=== PATIENT | male | born 1980 | race Caucasian/White ===

== ENCOUNTER 2019-05-29 08:53 | Inpatient (IN) | payer BC ==
[~2019-05-29] VITALS: Ht 167.6 cm; Wt 105.4 kg
[2019-05-29 08:54] VITALS: Ht 167.6 cm; Wt 105.4 kg
--- NOTE | 2019-05-29 08:54 | NUR ---
PT BIB [facility] WITH C/O SOB X4 DAYS WORSENING SINCE THIS AM, PER MEDICS PT WAS HYPOTENSIVE AND TACYCARDIA ON SCENE, PER MEDICS PT HAS HX COLON CANCER THAT METS "TO UNKNOWN LOCATION" UPON ARRIVAL PT AAOX4, LABORED BREATHING NOTED, PT ON 6L O2 NC, PORT A CATH NOTED TO RIGHT UPPER CHEST WITH ECCYMOSIS SURROUNDING PORT A CATH LOCATION, PER PT "FROM THE CATH" PT ABLE TO SPEAK 3-4 WORDS AT TIME, BILATERAL PEDAL EDEMA NOTED, +PMSC TO ALL EXTREMITIES, SKIN PINK DRY AND WARM, PT GOWNED AND PLACED ON FULL CM, SINUS TACYCARDIA, MD YANG AT BEDSIDE, RT AT BEDSIDE, LAB AT BEDSIDE, PT PLACED ON 2L O2 NC
--- NOTE | 2019-05-29 08:54 | NUR ---
MD YANG AT BEDSIDE PERFORMING MSE
--- NOTE | 2019-05-29 08:54 | NUR ---
PT BIB [facility] WITH C/O SOB X4 DAYS WORSENING SINCE THIS AM, PER MEDICS PT WAS HYPOTENSIVE AND TACYCARDIA ON SCENE, PER MEDICS PT HAS HX COLON CANCER THAT METS "TO UNKNOWN LOCATION" UPON ARRIVAL PT AAOX4, LABORED BREATHING NOTED, PT TACYPENIC, ACCESSORY MUCSCLE USE NOTED, PT ON 6L O2 NC, PORT A CATH NOTED TO RIGHT UPPER CHEST WITH ECCYMOSIS SURROUNDING PORT A CATH LOCATION, PER PT "FROM THE CATH" PT ABLE TO SPEAK 3-4 WORDS AT TIME, BILATERAL PEDAL EDEMA NOTED, +PMSC TO ALL EXTREMITIES, SKIN PALE DRY AND WARM, PT GOWNED AND PLACED ON FULL CM, SINUS TACYCARDIA, MD YANG AT BEDSIDE, RT AT BEDSIDE DRAWING ABGS LAB AT BEDSIDE
--- NOTE | 2019-05-29 08:54 | NUR ---
RT AT BEDSIDE
--- NOTE | 2019-05-29 08:55 | NUR ---
PT DENIES ANY CHEST PAIN, RECENT FEVERS, AND/OR ANY EPISODES OF NAUSEA/VOMITING
--- NOTE | 2019-05-29 09:05 | NUR ---
ECCYMOSIS NOTED TO TOP OF LEFT FOOT
--- NOTE | 2019-05-29 09:13 | NUR ---
WARM BLANKET PROVIDED PER PT REQUEST AND COMFORT
[2019-05-29 09:42] LABS: CALCIUM 7.6 mg/dL (8.5-10.1); CARBON DIOXIDE 21.4 mmol/L (21-32); CREATININE SERUM 1.6 mg/dL (0.7-1.3); POTASSIUM SERUM 3.1 mmol/L (3.5-5.1)
[2019-05-29 09:47] LABS: BILIRUBIN TOTAL 1.02 mg/dL (0.20-1.00)
[2019-05-29 09:50] LABS: ALBUMIN 1.8 g/dL (3.4-5.0); TOTAL PROTEIN, SERUM 5.4 g/dL (6.4-8.2)
--- NOTE | 2019-05-29 10:01 | NUR ---
PT AAOX4 TALKING WITH HIS AT BEDSIDE, RESPS E/U, PT CURRENTLY ON 2L 02 NC WITH SPO2 97 PERCENT, WILL CONTINUE TO MONITOR
[2019-05-29] MEDS ORDERED: SPIRONOLACTONE100 MG PO (10:10)
[2019-05-29] MEDS ORDERED: LASIX20 MG PO (10:10)
[2019-05-29] MEDS ORDERED: PROPRANOLOL HCL10 MG PO (10:10)
[2019-05-29] MEDS ORDERED: K-PHOS NEUTRAL1 TAB PO (10:10)
[2019-05-29] MEDS ORDERED: VITRON C PO (10:10)
[2019-05-29] MEDS ORDERED: EPZICOM1 TAB (10:11)
[2019-05-29] MEDS ORDERED: DULCOLAX5 M1 PO (10:11)
--- NOTE | 2019-05-29 10:12 | NUR ---
PER PT RECEIVES CHEMO WEDNESDAY-WEDNESDAY [id number] WITH HIS LAST TX ON 04/21/19 AND HIS BILATERAL LEG SWELLING STARTED X1 WK AGO
--- NOTE | 2019-05-29 10:12 | NUR ---
MD YANG MADE AWARE OF PT BP
--- NOTE | 2019-05-29 10:25 | NUR ---
LAB AT BEDSIDE FOR REDRAW
[2019-05-29 10:30] LABS: UA SPECIFIC GRAVITY 1.015 (1.005-1.035); microscopic required? YES; urine erythrocyte TRACE (NEGATIVE)
[2019-05-29 10:36] LABS: RED CELL DISTRIBUTION WIDTH 24.4 % (11.5-14.5)
--- NOTE | 2019-05-29 10:40 | NUR ---
MD YANG MADE AWARE OF PT VITALS, COOLING MEASURES INITIATED
--- NOTE | 2019-05-29 10:40 | NUR ---
PT AND PT EDUCATED ABOUT FEVER, BLANKET REMOVED
[2019-05-29 10:44] LABS: PLATELET COUNT 19 x10^3mcL (130-400)
--- NOTE | 2019-05-29 10:44 | NUR ---
MD YANG ORDERING LACTIC ACID AT THIS TIME
--- NOTE | 2019-05-29 10:50 | NUR ---
LAB INFORMED ME THEY WILL DROP OFF THE [facility]
--- NOTE | 2019-05-29 11:01 | NUR ---
PT AAOX4, RESPS LABORED AND TACYPNEIC, NO ACCESSORY MUSCLE USE NOTED, PT TALKING WITH AT BEDSIDE, WILL CONTINUE TO MONITOR
--- NOTE | 2019-05-29 11:12 | NUR ---
NS AND VANCO INFUSING PER EMAR AND MD ORDER
--- NOTE | 2019-05-29 11:15 | NUR ---
PT DESAT TO 90% O2 INCREASED TO 4L VIA NC, PT REMAINS SINUS TACHYCARDIA WITH EVEN BUT LABORED RESPIRATIONS, SKIN REMNAINS PALE, DRY AND WARM, MD YANG MADE AWARE
[2019-05-29 11:24] LABS: BAND NEUTROPHIL 1 % (0-10); SEGMENTED NEUTROPHILS 9 % (37-75)
[2019-05-29 11:25] LABS: MONOCYTE 8 % (0-7); rbc morphology (normal/abnorm) ABNORMAL (NORMAL)
[2019-05-29 11:26] LABS: PLATELET MORPHOLOGY LARGE PLATELET SEEN
--- NOTE | 2019-05-29 12:29 | NUR ---
MD YANG MADE AWARE OF PT TEMP
--- NOTE | 2019-05-29 12:30 | NUR ---
MD YANG MADE AWARE OF PT BP
--- NOTE | 2019-05-29 12:36 | NUR ---
PT REMAINS SINUS TACHYCARDIA WITH EVEN BUT LABORED RESPIRATIONS, SKIN REMNAINS PALE, DRY AND WARM, AT BEDSIDE, MD YANG MADE AWARE OF PT BP
--- NOTE | 2019-05-29 12:51 | NUR ---
LEVO DRIP STARTED AT 2 MCG/MIN AT 7.5 ML/HR AND 1L NS BOLUS INFUSING PER EMAR
--- NOTE | 2019-05-29 12:53 | NUR ---
RT AMADA AT BEDSIDE
--- NOTE | 2019-05-29 12:56 | NUR ---
PT C/O 04/01 "TAILBONE PAIN FROM SITTING IN THE UNCOMFORTABLE BED" PILLOW PROVIDED FOR COMFORT
[2019-05-29 13:09] VITALS: BP 140/90
--- NOTE | 2019-05-29 13:17 | NUR ---
Total fluid resuscitation amount ordered for patient is 4000 mls. At time of admission/transfer to ICU 3 , 3500 mls have infused. Last BP was 94/54 (74) and TEO THOMAS is aware that BP will need to be reassessed after fluid infusion completed. REPORT GIVEN TO KATHY BRUCE, SHE IS ALSO AWARE THAT LACTIC ACID NEEDS TO BE DRAWN.
--- NOTE | 2019-05-29 13:45 | NUR ---
RC'D PT FROM ED VIA [facility] WITH NURSE PRESENT AT BEDSIDE. PT A/A/O/X4, SPEECH CLEAR AND APPROPRIATE. LETHARGIC. PT ABLE TO FOLLOW SIMPLE COMMANDS AND ABLE TO MAKE NEEDS KNOWN. PUPILS 3MM AND BRISK BILAT. PT DENIES LANDRUM/DIZZINESS. NO EENT DRAINAGE NOTED. RESP EQUAL AND SHALLOW. LUNGS DIM TO BASES, WHEEZE NOTED. PT ON 4L O2 VIA NC. SPO2 93%. SINUS TACH ON MONITOR. S1S2 AUSC. PT DENIES CP. PALP PULSES, EDEMA NOTED TO BLE. ELEVATED. SKIN WARM TO TOUCH AND CONSISTENT WITH ETHNICITY. CAP REFILL <3. GENERALIZED WEAKNESS. REPOSITION Q2H PRN. PT NPO AT THIS TIME. SETHI CATH WITH YELLOW URINE DRAINING TO GRAVITY, SECURED IN PLACE. ABDOMEN ROUND AND OBESE. ACTIVE BS. DENIES N/V. NO BM NOTED. SKIN W/D/I. BED IN LOWEST POSITION. CALL LIGHT IN LOW POSITION. WILL CONT TO MONITOR
--- NOTE | 2019-05-29 14:01 | NUR ---
HR ADVISOR PRESENT AT BEDSIDE.
[2019-05-29 14:04] VITALS: BP 89/55
--- NOTE | 2019-05-29 14:58 | NUR ---
RECIEVED CRITICAL LAB VALUE OF LACTIC ACID 3.0. DR. WYNNE MADE AWARE. NO NEW ORDERS PROVIDED. TEO CH MADE AWARE. WILL CONTINUE TO MONITOR.
--- NOTE | 2019-05-29 14:59 | NUR ---
PATIENT'S PROVIDED US WITH THE PATIENT'S ONCOLOGISTS PHONE NUMBER AT [facility]. ATTEMPTED TO CALL WITH NO ANSWER. WILL CONTINUE TO MONITOR.
--- NOTE | 2019-05-29 15:38 | NUR ---
ADMISSIONS ASSISTANT PRESENT AT BEDSIDE FOR BLOOD DRAW
--- NOTE | 2019-05-29 15:49 | NUR ---
MICROBIOLOGY CALLED WITH BLOOD CULTURE RESULT OF GRAM + COCCI IN CLUSTERS. DR. WYNNE MADE AWARE. TEO CH MADE AWARE. WILL CONTINUE TO MONITOR.
--- NOTE | 2019-05-29 16:40 | NUR ---
BP 88/49 (62), LEVOPHED TITRATED FROM 4MCG/MIN TO 6MCG/MIN. WILL CONT TO MONITOR
--- NOTE | 2019-05-29 17:18 | NUR ---
PT PREMEDICATED PER BLOOD TRANSFUSION PER PROTOCOL. VITAL SIGNS FOLLOWED: BP 92/51(64), HR 133, R39, SPO2 94% ON 4L O2 NC. T98.4. BLOOD TO BE INTITIATED SHORTLY
--- NOTE | 2019-05-29 19:15 | NUR ---
ENDORSED PT TO MEGA BILLET DRILLER RN. ALL QUESTIONS AND CONCERNS ADDRESSED
--- NOTE | 2019-05-29 19:16 | NUR ---
RECEIVED REPORT FROM DIMA BRUCE. WILL RESUME CARE.
[2019-05-29 19:20] VITALS: BP 86/55
--- NOTE | 2019-05-29 19:20 | NUR ---
RECEIVED PT AAOX4. SPEECH CLEAR. ABLE TO MAKE NEEDS KNOWN AND FOLLOW COMMANDS. PUPILS 3MM BRISK. BREATHING SHALLOW. ON 4L NC, O2SAT 92%. S1S2 AUSCULTATED WITH NO MURMURS NOTED. PT STATES NO CHEST PAIN AT THIS TIME. LEVOPHED GTT AT 6MCG/MIN. BP 86/55. MAP 65. CAP REFILL <3 SEC. +3 PITTING EDEMA NOTED TO BLE. PRTACATH TO R UPPER CHEST AND L AC 20G WNL, DRESSING CDI. GENERALIZED WEAKNESS. JOINTS INTACT. ABDOMEN ROUND, NONTENDER. CS ACTIVE X 4. NO N/V. ON REGULAR DIET. SETHI CATHETER IN PLACE DRAINING VIA GRAVITY VAN URINE. NO BM AT THIS TIME. BED IN LOW POSITION. CALL LIGHT WITHIN REACH. WILL CONTINUE TO MONITOR.
[2019-05-29 23:53] VITALS: BP 90/55
[2019-05-30 00:35] LABS: AMPHETAMINE QUAL UR NONE DETECTED (See below)
--- NOTE | 2019-05-30 01:30 | NUR ---
DR. LAMB AT BEDSIDE ASSESSING PT. UPDATES PROVIDED.
[2019-05-30 03:26] VITALS: BP 95/63
--- NOTE | 2019-05-30 03:30 | NUR ---
PT HAD LARGE SOFT BROWN BM. PT CLEANED.
--- NOTE | 2019-05-30 04:55 | NUR ---
DR. WYNNE AT BEDSIDE ASSESSING PT. UPDATES PROVIDED.
--- NOTE | 2019-05-30 05:05 | NUR ---
EKG BEING DONE AT BEDSIDE BY SERGEI RODRIGUEZ
--- NOTE | 2019-05-30 05:20 | NUR ---
BULK SUGAR HANDLER AT BEDSIDE FOR BLOOD DRAW.
--- NOTE | 2019-05-30 06:30 | NUR ---
PT STARTED DESATING TO THE 70'S. PT BECAME UNRESPONSIVE. NO PULSE FOUND. CODE BLUE INITIATED AT 0634. CPR INTIATED. SEE CODE BLUE SHEET. 0723- 2ND CODE BLUE CALLED, SEE CODE SHEET 0749- 3RD CODE BLE, SEE CODE BLUE SHEET 0807- 4TH CODE BLUE, SEE CODE BLUE SHEET DR. ROUSSEAU AT BEDSIDE FOR INSERTION OF FEMORAL A LINE.
--- NOTE | 2019-05-30 07:30 | NUR ---
PATIENT'S ARRIVED IN ICU LOBBY. DR WYNNE AND MYSELF SPOKE WITH PATIENT AND PROVIDED AN UPDATE. DR WYNNE INFORMED OF PATIENT'S POOR PROGNOSIS S/P CARDIAC ARREST.
--- NOTE | 2019-05-30 08:10 | NUR ---
DR WYNNE SPOKE WITH PATIENT'S AND INFORMED HER THAT PATIENT CONTINUES TO GO INTO CARDIAC ARREST. IS AWAITING OTHER FAMILY MEMBERS AT THIS TIME.
--- NOTE | 2019-05-30 08:28 | NUR ---
DR ROUSSEAU AT BEDSIDE SPEAKING WITH AND PATIENT'S MOTHER. POOR PROGNOSIS DISCUSSED WITH FAMILY. FAMILY DECIDING WHETHER TO WITHDRAW CARE.
--- NOTE | 2019-05-30 08:30 | NUR ---
DR ROUSSEAU REMAINS AT BEDSIDE ATTEMPTING TO PLACE CENTRAL LINE AND ARTERIAL LINE. UNABLE TO PALPATE PULSE. AT BEDSIDE AND DECIDED TO MAKE PATIENT DNR WITH NO FURTHER CPR. PATIENT WENT INTO ASYSTOLE AND PRONOUNCED BY DR ROUSSEAU.
--- NOTE | 2019-05-30 11:05 | NUR ---
SPOKE WITH DR WYNNE PER DR ROUSSEAU REQUEST AND INFORMED HIM THAT DR ROUSSEAU WAS UNABLE TO REACH PATIENT'S ONCOLOGIST. DR WYNNE WILL FOLLOW UP WITH PATIENT'S ONCOLOGIST TODAY.
--- NOTE | 2019-05-30 15:04 | NUR ---
0830- TOD PRONOUNCED BY DR ROUSSEAU 0900- DECOMMISSIONING WELL SITE MANAGER MATHIEU FITZGERALD AWARE TOD 0901- SHAKIRA FROM ADMITTING MADE AWARE 0910- SPOKE WITH NIK FROM [facility] AND PROVIDED PATIENT REPORT. PATIENT'S BODY RELEASED # [id number] 0921- CALLED ADVERTISING ANALYST'S OFFICE AND PROVIDED PATIENT INFORMATION. AWAITING RETURN PHONE CALL FROM ADVERTISING ANALYST. 1305- RECEIVED RETURN PHONE CALL FROM DEPUTY ALBA BRAN. PATIENT UPDATE PROVIDED. PATIENT IS RELEASED BY ADVERTISING ANALYST'S OFFICE. RELEASE #[id number]. 1340- POST MORTEM CARE PROVIDED 1504- SECURITY ON UNIT TO TRANSFER PATIENT TO [facility] [place].
== END 2019-05-30 08:30 | disposition expired | DRG 871 ==
LOC: ED 08:53 → IC 12:08
PROVIDERS: Emergency Medicine; ADMIT Internal Medicine
PROC: 0BH17EZ Insertion of Endotracheal Airway into Trachea, Via Natural or Artificial Opening (ICD-10-PCS; 2019-05-29)
PROC: 5A1935Z Respiratory Ventilation, Less than 24 Consecutive Hours (ICD-10-PCS; 2019-05-29)
PROC: 5A12012 Performance of Cardiac Output, Single, Manual (ICD-10-PCS; principal; 2019-05-30)
PROC: 06HY33Z Insertion of Infusion Device into Lower Vein, Percutaneous Approach (ICD-10-PCS; 2019-05-30)
PROC: B54BZZA Ultrasonography of Right Lower Extremity Veins, Guidance (ICD-10-PCS; 2019-05-30)
PROC: 5A12012 Performance of Cardiac Output, Single, Manual (ICD-10-PCS; 2019-05-30)
DX: A41.01 Sepsis due to Methicillin susceptible Staphylococcus aureus (principal); D61.810 Antineoplastic chemotherapy induced pancytopenia; R65.21 Severe sepsis with septic shock; J18.9 Pneumonia, unspecified organism; N17.0 Acute kidney failure with tubular necrosis; E43 Unspecified severe protein-calorie malnutrition; J96.01 Acute respiratory failure with hypoxia; C18.9 Malignant neoplasm of colon, unspecified; C78.7 Secondary malignant neoplasm of liver and intrahepatic bile duct; E87.1 Hypo-osmolality and hyponatremia; E87.2 Acidosis; N18.9 Chronic kidney disease, unspecified; I46.9 Cardiac arrest, cause unspecified; F12.90 Cannabis use, unspecified, uncomplicated; E83.51 Hypocalcemia; I48.91 Unspecified atrial fibrillation; E87.6 Hypokalemia; Z80.3 Family history of malignant neoplasm of breast; Z72.89 Other problems related to lifestyle; Z68.36 Body mass index [BMI] 36.0-36.9, adult; Z79.899 Other long term (current) drug therapy
CPT/HCPCS: 36556; 36600; 82962; A4628; G0378; J1450; J1956; J2185; J2543; J3370; J3490; J7030; J7040; J7050; P9016; Q0092; Q0163